=== PATIENT | male | born 1995 | race Caucasian/White ===

== ENCOUNTER 2016-07-18 17:41 | Emergency (ER) | payer OTHER ==
[~2016-07-18] VITALS: Ht 175.3 cm; Wt 83.9 kg
[2016-07-18 17:44] VITALS: BP 120/65
--- NOTE | 2016-07-18 19:30 | NUR ---
TO ER OF2
--- NOTE | 2016-07-18 19:30 | NUR ---
Patient being evaluated by physician.
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
[2016-07-18 19:58] VITALS: BP 121/70
--- NOTE | 2016-07-18 19:58 | NUR ---
Patient discharged with v/s stable. Written and verbal after care instructions given and explained BY DR. CAMPBELL Patient alert, oriented and verbalized understanding of instructions. Ambulatory with steady gait. All questions addressed prior to discharge. ID band removed. Patient advised to follow up with PMD. Rx of ROBAXIN AND MOTRIN given. Patient educated on indication of medication including possible reaction and side effects. Opportunity to ask questions provided and answered.
== END 2016-07-18 19:58 | disposition home or self-care (01) ==
LOC: MED 17:48
DX: T14.90 Injury, unspecified (principal); V89.2XXA Person injured in unspecified motor-vehicle accident, traffic, initial encounter; Y93.89 Activity, other specified; Y92.89 Other specified places as the place of occurrence of the external cause; Y99.8 Other external cause status
CPT/HCPCS: 99283